=== PATIENT | female | born 1940 | race Caucasian/White ===

== ENCOUNTER → 2018-12-05 | Outpatient (CLI) | payer MEDICARE, OTHER ==
[~2018-12-05] VITALS: Ht 154.9 cm; Wt 66.2 kg
[~2018-12-05] MED LIST: CATHETER FLUSH 10 ML SYR IV PRN; REGADENOSON 0.4 MG/5 ML SYR (LEXISCAN) IV ONE
[2018-12-05 11:07] LABS: ALBUMIN 4.1 GM/DL (3.2-4.5); BILIRUBIN,DIRECT 0.3 MG/DL (0.0-0.3); BILIRUBIN,INDIRECT 0.4 MG/DL; BILIRUBIN,TOTAL 0.7 MG/DL (0.1-1.0); TOTAL PROTEIN 6.9 GM/DL (6.4-8.2)
--- NOTE | 2018-12-05 17:00 | STRESS TEST ---
DATE OF SERVICE: 12/05/2018 LEXISCAN MYOVIEW STRESS TEST REPORT REFERRING PHYSICIAN: Dr. Man Wakefield. Baseline heart rate is 66. Baseline blood pressure 160/97. Baseline EKG is sinus rhythm with no ischemic changes. In summary, the patient was injected with 10.36 mCi of technetium-99 Myoview and the resting images were obtained. Then, the patient received 0.4 mg of Lexiscan, followed by 29.1 mCi of technetium-99 Myoview. Throughout the test, there were no EKG changes. The resting and stress images were reviewed and compared in the short axis, horizontal long axis, and vertical long axis views. Review of the images showed small left ventricle with good radiotracer uptake, no significant ischemia or infarction was seen. SSS is 5, SDS 2, TID value 0.89. On the gated images, the left ventricle appeared to be small in size with normal contractility. Calculated ejection fraction 88%. CONCLUSION: 1. The patient tolerated Lexiscan well. 2. No ischemia or infarction on SPECT images. 3. Small left ventricular size with normal contractility. Calculated ejection fraction 88%, gated images probably overestimating the left ventricular contractility due to the small left ventricle. Job ID: [id number] DocumentID: [id number] Dictated Date: 12/05/2018 15:30:52 Quality Control Systems Manager Date: 12/05/2018 16:59:58 Dictated By: SALAS PRASAD MD
== END ==
LOC: CARD 10:21
PROVIDERS: ATTEND Internal Medicine Cardiovascular Disease
DX: E78.2 Mixed hyperlipidemia (principal); R07.89 Other chest pain; I10 Essential (primary) hypertension
CPT/HCPCS: 36415; 78452; 80061; 80076; 93017; 93306

== ENCOUNTER 2019-04-24 14:20 | Outpatient (CLI) | payer MEDICARE ==
[~2019-04-24] VITALS: Ht 154.9 cm; Wt 66.2 kg
[2019-04-24] MEDS ORDERED: ASPI-808 PO (14:23)
[2019-04-24] MEDS ORDERED: SIME80TA57 PO (14:23)
[2019-04-24] MEDS ORDERED: LISI10TA2 PO (14:23)
[2019-04-24] MEDS ORDERED: METO-395 PO (14:23)
[2019-04-24] MEDS ORDERED: MELO15TA39 PO (14:23)
[2019-04-24] MEDS ORDERED: METH2.5T PO (14:23)
[2019-04-24] MEDS ORDERED: LOVA20TA2 PO (14:23)
[2019-04-24] MEDS ORDERED: FURO40TA4 PO (14:23)
[2019-04-24] MEDS ORDERED: OMEP20TA7 PO (14:23)
== END 2019-04-24 14:46 | disposition home or self-care (01) ==
LOC: PREOP 14:20
PROVIDERS: ATTEND Surgery
DX: Z01.818 Encounter for other preprocedural examination (principal)

== ENCOUNTER → 2019-04-29 | Day surgery (SDC) | payer MEDICARE ==
[2019-04-29] VITALS (7 sets, daily range): BP systolic 100–141; BP diastolic 59–86
[~2019-04-29] VITALS: Ht 154.9 cm; Wt 66.2 kg
[~2019-04-29] MED LIST changes: +ASPI-808 PO; -CATHETER FLUSH 10 ML SYR IV PRN; +FURO40TA4 PO; +LACTATED RINGERS 1,000 ML IV ONE; +LACTATED RINGERS 1,000 ML IV SCH; +LISI10TA2 PO; +LOVA20TA2 PO; +MELO15TA39 PO; +METH2.5T PO; +METO-395 PO; +MIDAZOLAM 2 MG/2 ML (VERSED) VIAL ONE; +NS IV 500 ML 500 ML IV PRN; +OMEP20TA7 PO; +PROPOFOL INJECTION 50 ML IV ONE; -REGADENOSON 0.4 MG/5 ML SYR (LEXISCAN) IV ONE; +SIME80TA57 PO
--- OUTSIDE RECORDS SUMMARY | 2019-04-29 08:47 | XMS REPORT | Continuity of Care Document ---
Author Organization Unknown Address Unknown Phone Unavailable Allergies There is no data. Medications There is no data. Problems There is no data. Procedures There is no data. Results There is no data. Encounters ACCT No. Visit Date/Time Discharge Status Pt. Type Provider Facility Loc./Unit Complaint [id number] 03/11/2019 15:15:00 03/11/2019 23:59:59 CLS Outpatient SELF, MAX Pradhan [facility]
--- NOTE | 2019-04-29 09:20 | Progress Note-Pre Operative ---
Pre-Operative Progress Note H&P Reviewed The H&P was reviewed, patient examined and no changes noted. Time Seen by Provider: 09:16 Date H&P Reviewed: Apr 29, 2019 Time H&P Reviewed: 09:18 Pre-Operative Diagnosis: Screening colonoscopy, constipation CHEPE BALBUENA DO Apr 29, 2019 09:20
--- NOTE | 2019-04-29 09:53 | Progress Note-Post Operative ---
Post-Operative Progess Note Surgeon (s)/High School Math Tutor (s) Surgeon CHEPE BALBUENA DO High School Math Tutor: none Pre-Operative Diagnosis Screening colonoscopy, constipation Post-Operative Diagnosis Diverticula Internal hemorrhoids Procedure & Operative Findings Date of Procedure 04/29/19 Procedure Performed/Findings colon Anesthesia Type IV sedation by MEDICAL CENTER REPRESENTATIVE Estimated Blood Loss Estimated blood loss (mL): none Specimens/Packing Specimens Removed none CHEPE BALBUENA DO Apr 29, 2019 09:53
--- NOTE | 2019-04-29 09:56 | Endoscopy Discharge Instruct ---
Endo Procedure/Findings Findings 1.: Diverticulosis 2.: Internal Hemorrhoids Discharge Instructions - Activity: You might feel a little sleepy until tomorrow. This is due to the medicine you received to relax you. Until tomorrow, you should: NOT drive a car, operate machinery or power tools. NOT drink any alcoholic beverages. NOT make any important decisions or sign importortant papers. Do not return to work until tomorrow, unless otherwise instructed. Resume previous activities tomorrow. Diet: Start by taking liquids. If you tolerate liquids, advance to solid food. make an appointment for one week Instructions: 1.: Colonscopy in 10 years Notify Physician - If you experience excessive bleeding, unusual abdominal pain, fever, or chest pain, contact your doctor immediately. Follow-Up: - I have received and understand the above instructions and will call my doctor if I have any further questions. Patient Signature Date Nurse Signature Other (Relationship) CHEPE BALBUENA DO Apr 29, 2019 09:56
--- NOTE | 2019-05-01 14:48 | OPERATIVE REPORT ---
DATE OF SERVICE: 04/29/2019 PREOPERATIVE DIAGNOSIS: Screening colonoscopy, constipation. POSTOPERATIVE DIAGNOSIS: Diverticula, internal hemorrhoids. PROCEDURE: Colonoscopy. SURGEON: Wisam Wayne DO NUTRITIONAL CHEMIST: None. ANESTHESIA: IV sedation by COMBINATION PRESSER. SPECIMENS: None. BLOOD LOSS: None. FLUIDS: Per anesthesia. POSTOPERATIVE CONDITION: Stable. INDICATION FOR PROCEDURE: The patient is a 78-year-old female who has had some colonoscopy and has had some constipation. Does not have screening colonoscopy in a long time. FINDINGS: The patient had some large diverticula and some internal hemorrhoids, but no other obvious pathology. PROCEDURE NOTE: After informed consent was obtained, the patient was brought to the endoscopy suite and placed in the bed in the left lateral decubitus position. He was administered IV sedation by the COMBINATION PRESSER who then monitored his vitals the entire time, heart rate, blood pressure and pulse ox and the scope was inserted, pushed all the way to [address], noted diverticula, took pictures of these. They were very large. Once all the way to cecum, took a picture of appendiceal orifice, noted the ileocecal valve and then slowly withdrew the scope insufflating to look circumferentially at the morales looking at the cecum, up the ascending colon to the hepatic flexure, then down the transverse colon, splenic flexure, into the descending colon. Throughout the descending colon and sigmoid colon, saw large diverticula continued down into the rectum, retroflexed the rectal vault, saw some minimal internal hemorrhoids, took a picture of this and then removed the scope. The patient tolerated the procedure and she was then recovered in endoscopy suite. Job ID: [id number] DocumentID: [id number] Dictated Date: 05/01/2019 09:52:56 Cutter And Edge Trimmer Date: 05/01/2019 14:47:05 Dictated By: WISAM WAYNE DO
== END ==
LOC: ENDO 08:00
PROVIDERS: ATTEND Surgery
DX: Z12.11 Encounter for screening for malignant neoplasm of colon (principal); K57.30 Diverticulosis of large intestine without perforation or abscess without bleeding; K59.00 Constipation, unspecified; K64.8 Other hemorrhoids; K29.50 Unspecified chronic gastritis without bleeding; E78.2 Mixed hyperlipidemia; I25.10 Atherosclerotic heart disease of native coronary artery without angina pectoris; I10 Essential (primary) hypertension; R06.02 Shortness of breath; R07.9 Chest pain, unspecified; Z88.5 Allergy status to narcotic agent; Z87.891 Personal history of nicotine dependence; Z79.82 Long term (current) use of aspirin; Z82.49 Family history of ischemic heart disease and other diseases of the circulatory system; Z80.9 Family history of malignant neoplasm, unspecified

== ENCOUNTER 2019-05-19 09:47 | Emergency (ER) | payer MEDICARE ==
[~2019-05-19] VITALS: Ht 149.9 cm; Wt 63.5 kg
[~2019-05-19 09:47] MED LIST changes: -LACTATED RINGERS 1,000 ML IV ONE; -LACTATED RINGERS 1,000 ML IV SCH; -MIDAZOLAM 2 MG/2 ML (VERSED) VIAL ONE; -NS IV 500 ML 500 ML IV PRN; -PROPOFOL INJECTION 50 ML IV ONE
--- NOTE | 2019-05-19 10:05 | ED Fall/Injury ---
General Stated Complaint: FALL LAST WK - PAIN IN RT SIDE Source: patient Exam Limitations: no limitations History of Present Illness Date Seen by Provider: May 19, 2019 Time Seen by Provider: 09:59 Initial Comments This 78-year-old female presents with a complaint of right chest wall pain after she fell last week into a couch injuring the right chest wall. The patient was very active yesterday and today has experienced significantly more pain over the impact area of the anterior lower right ribs. Fortunately the patient has not had any severe shortness of breath, fever or chill, hemoptysis, associated abdominal pain, nausea or vomiting. Patient denies other injury and her fall. She had no associated head, neck, or back injury. She has had no associated paresthesias or weakness. Allergies and Home Medications Allergies Coded Allergies: codeine (Unverified Allergy, Mild, N/V, 04/24/19) Home Medications Aspirin 325 Mg Tablet, 325 MG PO DAILY, (Reported) Furosemide 40 Mg Tablet, 40 MG PO DAILY, (Reported) Lisinopril 10 Mg Tablet, 10 MG PO DAILY, (Reported) Lovastatin 20 Mg Tablet, 20 MG PO DAILY, (Reported) Meloxicam 15 Mg Tablet, 15 MG PO DAILY, (Reported) Methotrexate Sodium 2.5 Mg Tablet, 20 MG PO Tu, (Reported) Metoprolol Succinate 100 Mg Tab.er.24h, 100 MG PO DAILY, (Reported) Omeprazole 20 Mg Tablet.dr, 20 MG PO DAILY, (Reported) Simethicone 80 Mg Tab.chew, 80 MG PO PRN, (Reported) Patient Home Medication List Home Medication List Reviewed: Yes Review of Systems Review of Systems Constitutional: No chills Eyes: Denies Blurred Vision Ears, Nose, Mouth, Throat: denies ear pain Respiratory: No cough; other Cardiovascular: chest pain (right anterior chest wall pain) Gastrointestinal: No abdominal pain, No diarrhea, No nausea, No vomiting Genitourinary: no symptoms reported : No Musculoskeletal: No back pain Skin: other (patient has an erythematous rash from a topical patch application to the right anterior chest wall for her pain.) Psychiatric/Neurological: No Symptoms Reported Past Ecwuycw-Eijfhj-Cpaoyj Hx Past Med/Social Hx: Reviewed Nursing Past Med/Soc Hx Patient Social History 2nd Hand Smoke Exposure: No Recent Hopitalizations: No Immunizations Up To Date Date of Pneumonia Vaccine: Jun 27, 2016 Date of Influenza Vaccine: Jun 25, 2018 Seasonal Allergies Seasonal Allergies: No Past Medical History Surgeries: Yes Appendectomy Respiratory: Yes Sleep Apnea Currently Using CPAP: No (DOES NOT USE) Cardiac: Yes High Cholesterol, Hypertension Neurological: No Sexually Transmitted Disease: No HIV/AIDS: No Genitourinary: No Gastrointestinal: Yes (GAS) Colitis, Chronic Constipation Musculoskeletal: Yes Arthritis Endocrine: No HEENT: Yes (GLASSES) Loss of Vision: Denies Hearing Impairment: Denies Cancer: No Psychosocial: No Integumentary: Yes Psoriasis Blood Disorders: No Adverse Reaction/Blood Tranf: No (N/A) Physical Exam Vital Signs Vital Signs - First Documented 05/19/19 09:51 Temp 97.7 Pulse 58 Resp 18 B/P (MAP) 124/80 (95) Pulse Ox 96 O2 Delivery Room Air Capillary Refill : Height, Weight, BMI Height: 5'1.00" Weight: 146lbs. 0.0oz. 66.272542ne; 27.6 BMI Method: General Appearance: WD/WN, no apparent distress HEENT: normal ENT inspection Neck: normal inspection Cardiovascular: regular rate, rhythm Respiratory: lungs clear, normal breath sounds, no respiratory distress, other (there is marked tenderness palpation over the right anterior chest wall over the lower ribs in the midclavicular line.) Gastrointestinal: normal bowel sounds, non tender, soft Back: normal inspection Extremities: normal range of motion, normal inspection Neurologic/Psychiatric: no motor/sensory deficits, alert, normal mood/affect, oriented x 3 Skin: normal color, warm/dry, rash (over the right lower ribs anteriorly from the patient's pain patch) Abdi Coma Score Best Eye Response: (4) Open Spontaneously Best Verbal Response: (5) Oriented Best Motor Response: (6) Obeys Commands Abdi Total: 15 Progress/Results/Core Measures Results/Orders My Orders Orders - GERRY HILTON MD Ribs 2-3 View Right (05/19/19 10:05) Fentanyl Injection (Sublimaze Injection (05/19/19 10:15) Medications Given in ED Current Medications Medications Dose Ordered Sig/Jenny Route Start Time Stop Time Status Last Admin Dose Admin Fentanyl Citrate 50 mcg ONCE ONCE IM 05/19/19 10:15 05/19/19 10:16 DC 05/19/19 10:07 50 MCG Vital Signs/I&O 05/19/19 09:51 Temp 97.7 Pulse 58 Resp 18 B/P (MAP) 124/80 (95) Pulse Ox 96 O2 Delivery Room Air Progress Progress Note : Time: 11:11 Progress Note Chest x-ray demonstrated fracture of the right sixth and seventh ribs. There is no evidence of a pneumohemothorax. Patient was significantly improved with 50 g of fentanyl IV. I discussed findings with patient and asked that she follow-up closely with her caregiver of choice after the . I sent the patient with hydr ocodone for pain. I asked that she return if she have any shortness of breath, increasing chest pain, or hemoptysis. Departure Impression Primary Impression: Fracture of rib Qualified Codes: S22.41XA - Multiple fractures of ribs, right side, initial encounter for closed fracture Disposition: HOME, SELF-CARE Condition: Improved Departure-Patient Inst. Decision time for Depature: 11:12 Referrals: MAX ROSARIO MD (PCP/Family) Primary Care Physician Patient Instructions: Rib Fractures in Adults Add. Discharge Instructions: Vicodin for pain. Watch for signs of fever, increasing shortness of breath, or coughing up blood." Follow with Dr. rosario on Monday. Return if any problems or questions. Scripts Hydrocodone/Acetaminophen (Vicodin 5-300 mg Tablet) 1 Each Tablet 1-2 EACH PO Q6H PRN for PAIN-MODERATE MDD 10 for 7 Days, #20 TAB Prov: GERRY HILTON MD 05/19/19 GERRY HILTON MD May 19, 2019 10:04
[2019-05-19] MEDS ORDERED: fentaNYL INJECTION 100 MCG/2 ML AMP IM ONE (10:15)
--- NOTE | 2019-05-19 10:54 | Diagnostic Imaging Report ---
EXAMINATION: Right r8ib radiographs, 2 views. COMPARISON: None. HISTORY: 78-year-old female, fall. Right-sided rib pain. FINDINGS: There are mildly displaced fractures of the right sixth and seventh ribs. There is no identified right-sided pneumothorax or sizable pleural effusion. There is a probable hiatal hernia. There are severe right glenohumeral arthritic changes. There are probable intra-articular bodies associated with the left glenohumeral joint. IMPRESSION: 1. Mildly displaced fractures of the right sixth and seventh ribs. 2. No identified right-sided pneumothorax or pleural effusion. 3. Probable large hiatal hernia. Dictated by: Dictated on workstation # [id number]
[2019-05-19] MEDS ORDERED: HYDR-3455 PO (11:14)
[2019-05-19 11:44] VITALS: BP 134/75
--- NOTE | 2019-05-19 11:44 | NUR ---
Pt was given education on activity as tolerated but not lay around/not staying in bed and to promote ambulation, healthy diet, and stay hydrated. Pt reviewed signs and sx of need to be seen or return to ER. Pt to call PCP office Monday to schedule a follow up. Rx Chiqui handed to patient
== END 2019-05-19 11:44 | disposition home or self-care (01) ==
LOC: EDUNIT# 09:47 → ER FS 09:49
DX: S22.41XA Multiple fractures of ribs, right side, initial encounter for closed fracture (principal); G47.30 Sleep apnea, unspecified; I10 Essential (primary) hypertension; E78.00 Pure hypercholesterolemia, unspecified; R40.2142 Coma scale, eyes open, spontaneous, at arrival to emergency department; R40.2252 Coma scale, best verbal response, oriented, at arrival to emergency department; R40.2362 Coma scale, best motor response, obeys commands, at arrival to emergency department; Z87.19 Personal history of other diseases of the digestive system; Z88.5 Allergy status to narcotic agent; Z79.82 Long term (current) use of aspirin; Z90.49 Acquired absence of other specified parts of digestive tract; W08.XXXA Fall from other furniture, initial encounter
CPT/HCPCS: 71100

== ENCOUNTER 2020-11-18 11:45 | Emergency (ER) | payer MEDICARE ==
[~2020-11-18] VITALS: Ht 152.4 cm; Wt 55.0 kg
[~2020-11-18 11:45] MED LIST changes: +HYDR-3455 PO; -LISI10TA2 PO; +LISI10TA25 PO; -METO-395 PO; +MTP100TCR PO; -SIME80TA57 PO; +SIME80TA66 PO
[2020-11-18] MEDS ORDERED: methylPREDNISolone 40 MG/ML (DEPO MEDROL) VIAL IM STA (12:00)
[2020-11-18] MEDS ORDERED: ORPHENADRINE 60 MG/2 ML (NORFLEX) AMP (ED ONLY) IM STA (12:00)
--- NOTE | 2020-11-18 12:09 | ED General ---
General Stated Complaint: LEFT HIP AND KNEE PAIN Source of Information: Patient History of Present Illness Date Seen by Provider: Nov 18, 2020 Time Seen by Provider: 11:47 Initial Comments 80-year-old female presenting with complaints of pain in the left hip radiating down her leg. She has chronic left knee pain but since around noon yesterday after sitting on a wooden bench and increased walking in the mall yesterday she has had pain radiating from posterior left hip down her leg. She has tried taking aspirin-based medication this morning without relief. She usually takes meloxicam but does not feel that it helps with her knee and it has not helped with her hip pain. She denies any direct trauma to the hip and she has not had any falls. She was having a lot of difficulty getting comfortable on the wooden bench in the setting her for more than 30 minutes. This is the time that she noticed having the increased pain in her hip going down her leg. This was around noon yesterday and has progressed since then. She has no difficulty with bowel or bladder control. She denies any fever or chills. She has increased pain with walking due to the posterior left hip pain. Timing/Duration: 24 Hours Severity: Severe Modifying Factors: worse with Movement; improves with Rest Associated Systoms: No Chest Pain, No Cough, No Diaphoresis, No Fever/Chills, No Headaches, No Loss of Appetite, No Malaise, No Nausea/Vomiting, No Rash, No Seizure, No Shortness of Air, No Syncope, No Weakness Allergies and Home Medications Allergies Coded Allergies: codeine (Unverified Allergy, Mild, N/V, 04/24/19) Home Medications Aspirin 325 Mg Tablet, 325 MG PO DAILY, (Reported) Baclofen 5 Mg Tablet, 5 MG PO BID PRN for muscle spasm/hip pain Prescribed by: FRANCISCO SHI on 11/18/20 1327 Furosemide 40 Mg Tablet, 40 MG PO DAILY, (Reported) Lisinopril 10 Mg Tablet, 10 MG PO DAILY, (Reported) Lovastatin 20 Mg Tablet, 20 MG PO DAILY, (Reported) Meloxicam 15 Mg Tablet, 15 MG PO DAILY, (Reported) Methotrexate Sodium 2.5 Mg Tablet, 20 MG PO Tu, (Reported) Metoprolol Succinate 50 Mg Tab.er.24h, 50 MG PO DAILY, (Reported) Omeprazole 40 Mg Capsule.dr, 40 MG PO DAILY, (Reported) Sertraline HCl 50 Mg Tablet, 50 MG PO DAILY, (Reported) Simethicone 80 Mg Tab.chew, 80 MG PO PRN, (Reported) Patient Home Medication List Home Medication List Reviewed: Yes Review of Systems Review of Systems Constitutional: No chills, No fever EENTM: no symptoms reported Respiratory: no symptoms reported Cardiovascular: no symptoms reported Gastrointestinal: no symptoms reported Genitourinary: no symptoms reported Musculoskeletal: see HPI, joint pain (posterior left hip pain radiating down her left leg) Skin: No rash Psychiatric/Neurological: Tingling (left leg) Hematologic/Lymphatic: No Symptoms Reported Immunological/Allergic: no symptoms reported Past Pvsmcvz-Cakxsw-Lkrpvt Hx Past Med/Social Hx: Reviewed Nursing Past Med/Soc Hx Patient Social History 2nd Hand Smoke Exposure: No Recent Hopitalizations: No Immunizations Up To Date Date of Pneumonia Vaccine: Jun 27, 2016 Date of Influenza Vaccine: Jun 25, 2018 Seasonal Allergies Seasonal Allergies: No Past Medical History Surgeries: Yes Appendectomy Respiratory: Yes Sleep Apnea Currently Using CPAP: No (DOES NOT USE) Cardiac: Yes High Cholesterol, Hypertension, Irregular Heartbeat Neurological: No Sexually Transmitted Disease: No HIV/AIDS: No Genitourinary: No Gastrointestinal: Yes (GAS) Colitis, Gastroesophageal Reflux, Chronic Constipation Musculoskeletal: Yes Arthritis Endocrine: No HEENT: Yes (GLASSES) Loss of Vision: Denies Hearing Impairment: Denies Cancer: No Psychosocial: No Integumentary: Yes Psoriasis Blood Disorders: No Adverse Reaction/Blood Tranf: No (N/A) Physical Exam Vital Signs Vital Signs - First Documented 11/18/20 11:45 Temp 37.0 Pulse 70 Resp 16 B/P (MAP) 153/72 (99) Pulse Ox 95 O2 Delivery Room Air Capillary Refill : Height, Weight, BMI Height: 4'11.00" Weight: 140lbs. 0.0oz. [id number]; 27.6 BMI Method:Stated General Appearance: WD/WN, Anxious Respiratory: Chest Non Tender, Lungs Clear, Normal Breath Sounds Cardiovascular: Regular Rate, Rhythm, Normal Peripheral Pulses Back: Normal Inspection, No CVA Tenderness, No Vertebral Tenderness Extremity: Normal Capillary Refill, No Calf Tenderness, No Pedal Edema, Other (pain over SI joint on left side and increases the pain she has felt in last 24 hours. negative SLR. pain with ROM left knee that is chronic) Neurologic/Psychiatric: Alert, Oriented x3, structural metal worker II-XII Norm as Tested, Abnormal Gait (antalgic) Skin: Normal Color, Warm/Dry; No Rash Progress/Results/Core Measures Suspected Sepsis SIRS Temperature: Pulse: Respiratory Rate: Blood Pressure / Mean: Results/Orders My Orders Orders - FRANCISCO SHI MD Ct Pelvis Wo (11/18/20 12:00) Dexamethasone Injection (Decadron Inje (11/18/20 12:00) Methylprednisolone Acetate Inj (Depo-Med (11/18/20 12:00) Orphenadrine Inj (Ed Only) (Norflex Inje (11/18/20 12:00) Vital Signs/I&O 11/18/20 11:45 Temp 37.0 Pulse 70 Resp 16 B/P (MAP) 153/72 (99) Pulse Ox 95 O2 Delivery Room Air Capillary Refill : Progress Note #1: Progress Note try Decadron with depomedrol for pain and inflammation, Norflex for possible muscle spasms in the left hip and leg from possible Sciatica with her having pain over SI joint and radiating down leg. Obtain CT scan of the pelvis to evaluate for bony abnormality contributing to her symptoms. Progress Note #2: Progress Note CT scan does not show any occult fracture or bony disruption in left pelvis/hip area. Counseled pt on results and will try low dose baclofen. Depo-Medrol should continue to help with pain and inflammation over the next 7 to 10 days. Check with clinic for continued concerns and may need a walker or assistive device to help with walking. Diagnostic Imaging Diagonstic Imaging: CT Plain Films/CT/US/NM/MRI: pelvis Comments [facility] [place], [place] NAME: JOB CARLOS [facility] REC#: [id number] PT STATUS: DEP ER : 1940 PHYSICIAN: FRANCISCO SHI MD ADMIT DATE: 11/18/20/ER FS Signed Date of Exam:11/18/20 CT PELVIS WO PROCEDURE: CT pelvis without contrast. TECHNIQUE: Multiple contiguous axial images were obtained through the pelvis without the use of intravenous contrast. Sagittal and coronal reformations were performed. Auto Exposure Controls were utilized during the CT exam to meet ALARA standards for radiation dose reduction. INDICATION: Left hip pain. FINDINGS: The sacrum is intact. The SI joints appear normal. There are no hip fractures seen. The pelvic ring is intact. There are advanced degenerative disc changes at L4-L5 with a grade 1 spondylolisthesis. There is advanced degenerative disc change at L5-S1. There is vacuum disc phenomena with complete loss of the joint space at both L4-L5 and L5-S1. There is a central spinal stenosis at L4-L5 where the sagittal diameter of the canal is reduced to 6 mm. A uterus is present. The adnexa are unremarkable. The urinary bladder is unremarkable. There is diverticulosis of the colon but no evidence of diverticulitis. There are no pathologic masses or fluid collections seen in the pelvis. IMPRESSION: Severe degenerative disc changes at L4-L5 and L5-S1 with grade 1 spondylolisthesis and central stenosis at L4-L5. Dictated by: Dictated on workstation # [id number] Dict: 11/18/20 1250 Trans: 11/18/20 1335 [id number] Interpreted by: SRIRAM CHU MD Electronically signed by: SRIRAM CHU MD 11/18/20 1335 Departure Impression Primary Impression: Left sided sciatica Disposition: 01 HOME, SELF-CARE Condition: Improved Departure-Patient Inst. Decision time for Depature: 13:27 Referrals: MAX WAKEFIELD MD (PCP/Family) Primary Care Physician Patient Instructions: Sciatica (DC), Sciatica Exercises Add. Discharge Instructions: Try alternating ice and heat to your left hip area to help with pain and inflammation. Check with Dr. Wakefield about the sciatica and your knee as well as if he will prescribe a walker or assistive device to help with your walking besides the cane you are currently using. Try using the muscle relaxer at least at bedtime to help with pain and spasms in your hip and leg. Continue with your regular medicines at home. Scripts Baclofen (Baclofen) 5 Mg Tablet 5 MG PO BID PRN for muscle spasm/hip pain for 10 Days, #20 TAB 0 Refills Prov: FRANCISCO SHI MD 11/18/20 FRANCISCO SHI MD Nov 18, 2020 12:08
--- NOTE | 2020-11-18 12:57 | Diagnostic Imaging Report ---
PROCEDURE: CT pelvis without contrast. TECHNIQUE: Multiple contiguous axial images were obtained through the pelvis without the use of intravenous contrast. Sagittal and coronal reformations were performed. Auto Exposure Controls were utilized during the CT exam to meet ALARA standards for radiation dose reduction. INDICATION: Left hip pain. FINDINGS: The sacrum is intact. The SI joints appear normal. There are no hip fractures seen. The pelvic ring is intact. There are advanced degenerative disc changes at L4-L5 with a grade 1 spondylolisthesis. There is advanced degenerative disc change at L5-S1. There is vacuum disc phenomena with complete loss of the joint space at both L4-L5 and L5-S1. There is a central spinal stenosis at L4-L5 where the sagittal diameter of the canal is reduced to 6 mm. A uterus is present. The adnexa are unremarkable. The urinary bladder is unremarkable. There is diverticulosis of the colon but no evidence of diverticulitis. There are no pathologic masses or fluid collections seen in the pelvis. IMPRESSION: Severe degenerative disc changes at L4-L5 and L5-S1 with grade 1 spondylolisthesis and central stenosis at L4-L5. Dictated by: Dictated on workstation # [id number]
[2020-11-18] MEDS ORDERED: OMEP40CA27 PO (12:58)
[2020-11-18] MEDS ORDERED: SERT-413 PO (12:58)
[2020-11-18] MEDS ORDERED: METO50TA7 PO (12:58)
[2020-11-18] MEDS ORDERED: Vit D3 (12:58)
[2020-11-18] MEDS ORDERED: BACL5TAB PO (13:27)
[2020-11-18 13:29] VITALS: BP 143/71
== END 2020-11-18 13:29 | disposition home or self-care (01) ==
LOC: EDUNIT# 11:45 → ER FS 11:47
DX: M54.32 Sciatica, left side (principal); I10 Essential (primary) hypertension; E78.00 Pure hypercholesterolemia, unspecified; K21.9 Gastro-esophageal reflux disease without esophagitis; Z88.5 Allergy status to narcotic agent; Z79.82 Long term (current) use of aspirin
CPT/HCPCS: 72192

== ENCOUNTER → 2020-12-01 | Outpatient (CLI) | payer MEDICARE ==
[~2020-12-01] MED LIST changes: +BACL5TAB PO; +METO50TA7 PO; +OMEP40CA27 PO; +SERT-413 PO; +Vit D3
== END ==
LOC: CARD 12:59
PROVIDERS: ATTEND Physician Assistant
DX: I10 Essential (primary) hypertension (principal); I08.3 Combined rheumatic disorders of mitral, aortic and tricuspid valves
CPT/HCPCS: 93306

== ENCOUNTER → 2020-12-18 | Outpatient (CLI) | payer MEDICARE | LOC: LAB FS 10:00 | PROVIDERS: ATTEND Orthopaedic Surgery | DX: Z01.812 Encounter for preprocedural laboratory examination (principal); Z20.822 Contact with and (suspected) exposure to COVID-19 | CPT/HCPCS: 87635 ==

== ENCOUNTER 2021-12-15 15:27 | Emergency (ER) | payer MEDICARE ==
[~2021-12-15] VITALS: Ht 152 cm; Wt 52.3 kg
[~2021-12-15 15:27] MED LIST changes: -OMEP40CA27 PO; +OMEP40CA6 PO; -SIME80TA66 PO; +SIME80TA72 PO
[2021-12-15 15:30] VITALS: BP 144/82
--- NOTE | 2021-12-15 15:47 | ED Lower Extremity ---
General Chief Complaint: Trauma-Non Activation Stated Complaint: FALL History of Present Illness Date Seen by Provider: Dec 15, 2021 Time Seen by Provider: 15:29 Initial Comments 81-year-old female with PMH of left knee replacement December 2020, is here after a fall where she lost her balance by stepping on the curb and twisting her knee, and fell on her face onto the curb resulting in swelling and pain to her nose and left knee pain. Denies LOC, visual disturbances, ringing in the ears, nausea or vomiting, abdominal pain. Patient was able to get into the car with assistance of bystanders. Allergies and Home Medications Allergies Coded Allergies: codeine (Unverified Allergy, Mild, N/V, 04/24/19) Patient Home Medication List Home Medication List Reviewed: Yes Aspirin (Aspirin) 325 Mg Tablet, 325 MG PO DAILY, (Reported) Entered as Reported by: KYLIE BURR on 04/24/19 142 Baclofen (Baclofen) 5 Mg Tablet, 5 MG PO BID PRN for muscle spasm/hip pain Prescribed by: FRANCISCO SHI on 11/18/20 1327 Furosemide (Furosemide) 40 Mg Tablet, 40 MG PO DAILY, (Reported) Entered as Reported by: KYLIE BURR on 04/24/19 142 Lisinopril (Lisinopril) 10 Mg Tablet, 10 MG PO DAILY, (Reported) Entered as Reported by: KYLIE BURR on 04/24/19 142 Lovastatin (Lovastatin) 20 Mg Tablet, 20 MG PO DAILY, (Reported) Entered as Reported by: KYLIE BURR on 04/24/19 1423 Meloxicam (Meloxicam) 15 Mg Tablet, 15 MG PO DAILY, (Reported) Entered as Reported by: KYLIE BURR on 04/24/19 142 Methotrexate Sodium (Methotrexate) 2.5 Mg Tablet, 20 MG PO Tu, (Reported) Entered as Reported by: KYLIE BURR on 04/24/19 1423 Metoprolol Succinate (Metoprolol Succinate) 50 Mg Tab.er.24h, 50 MG PO DAILY, (Reported) Entered as Reported by: KRISTEN OLIVEIRA on 11/18/20 1258 Omeprazole (Omeprazole) 40 Mg Capsule.dr, 40 MG PO DAILY, (Reported) Entered as Reported by: KRISTEN OLIVEIRA on 11/18/20 1258 Sertraline HCl (Sertraline HCl) 50 Mg Tablet, 50 MG PO DAILY, (Reported) Entered as Reported by: KRISTEN OLIVEIRA on 11/18/20 1258 Simethicone (Gas Relief) 80 Mg Tab.chew, 80 MG PO PRN, (Reported) Entered as Reported by: KYLIE BURR on 04/24/19 1423 [Vit D3] , (Reported) Entered as Reported by: KRISTEN OLIVEIRA on 11/18/20 1258 Review of Systems Constitutional: no symptoms reported EENTM: no symptoms reported, other (nasal pain) Respiratory: no symptoms reported Cardiovascular: no symptoms reported Gastrointestinal: no symptoms reported Musculoskeletal: joint pain, joint swelling Skin: no symptoms reported Psychiatric/Neurological: No Symptoms Reported Past Vuzyohs-Jpyhjy-Gnkdez Hx Patient Social History Tobacco Use?: No Use of E-Cig and/or Vaping dev: No Substance use?: No Alcohol Use?: No Pt feels they are or have been: No Immunizations Up To Date Tetanus Booster (TDap): Unknown Influenza Vaccine Up-to-Date: Yes; Up-to-Date Seasonal Allergies Seasonal Allergies: No Past Medical History Surgery/Hospitalization HX: 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 Surgeries: Yes Appendectomy Respiratory: Yes Sleep Apnea Currently Using CPAP: No (DOES NOT USE) Cardiac: Yes High Cholesterol, Hypertension, Irregular Heartbeat Neurological: No Sexually Transmitted Disease: No HIV/AIDS: No Genitourinary: No Gastrointestinal: Yes (GAS) Colitis, Gastroesophageal Reflux, Chronic Constipation Musculoskeletal: Yes Arthritis Endocrine: No HEENT: Yes (GLASSES) Loss of Vision: Denies Hearing Impairment: Denies Cancer: No Psychosocial: No Integumentary: Yes Psoriasis Blood Disorders: No Adverse Reaction/Blood Tranf: No (N/A) Physical Exam Vital Signs Vital Signs - First Documented Capillary Refill : Height, Weight, BMI Height: 4'11.00" Weight: 140lbs. 0.0oz. 63.768889ov; 23.00 BMI Method:Stated General Appearance: mild distress HEENT: PERRL/EOMI, other (nose is red, bruised, and swollen, and is tender to touch.) Neck: non-tender, full range of motion, supple, normal inspection Cardiovascular: regular rate, rhythm Respiratory: lungs clear Knees: left knee normal range of motion, left knee bone tenderness, left knee pain, left knee soft tissue tenderness, left knee swelling Ankles: left ankle normal inspection, left ankle normal range of motion Reflexes: 4+ knee (R), 4+ knee (L) Neurologic/Tendon: normal sensation Neurologic/Psychiatric: [employer] chair II-XII nml as tested, no motor/sensory deficits, alert, normal mood/affect, oriented x 3 Skin: normal color Progress/Results/Core Measures Results/Orders My Orders Orders - EKATERINA CEBALLOS MD Ct Head/Face/Cervical Wo (12/15/21 16:02) Knee 3 View Left (12/15/21 16:02) Vital Signs/I&O 12/15/21 12/15/21 15:30 15:30 Temp 35.6 35.6 Pulse 81 81 Resp 22 22 B/P (MAP) 144/82 144/82 (102) Pulse Ox 97 97 O2 Delivery Room Air Progress Progress Note : Progress Note 1. FALL NASAL FRACTURE: - CT HEAD/ C-SPINE/ FACIAL: see below - ice - Discussed with ENT consult via phone: Will give Augmentin prescription and pt to call ENT office tomorrow morning -Advised patient to ice as much as tolerated, sleep with head elevated, and advised not to blow the nose. -The patient was seen in the ED, and treated appropriately to presentation at a specific point in time. Patient is informed that there is a possibility that disease and illness can evolve and change in acuity rapidly or slowly after patient is discharged from the ER. Precautionary advice given to the patient for immediate return to ER if symptoms worsen or do not resolve, and to seek emergency care sooner rather than later. Pt also advised on the importance of PCP follow up and compliance with management and follow up plan. Pt verbally expressed understanding. 2. LEFT KNEE INJURY WITH FALL: - X-ray LEFT KNEE: normal - MELVIN bandage - Ibuprofen 600mg Diagnostic Imaging Diagonstic Imaging: Xray, CT Plain Films/CT/US/NM/MRI: facial bones, c-spine, knee, head Comments [facility] [place] [place] NAME: JOB CARLOS [facility] REC#: [id number] PT STATUS: REG ER : 1940 PHYSICIAN: EKATERINA CEBALLOS MD ADMIT DATE: 12/15/21/ER FS Draft Date of Exam:12/15/21 KNEE 3 VIEW LEFT INDICATION: Fall, knee pain. EXAMINATION: Left knee 12/15/2021 FINDINGS: 3 views of the left knee. There is a total knee arthoplasty which appears intact with no evidence for loosening. Postoperative changes noted within the visualized distal femur, partially imaged and uncomplicated in appearance. No acute fractures or dislocations appreciated. There is minimal joint fluid. IMPRESSION: 1. Uncomplicated postoperative findings, as above. Dictated on workstation # [id number] Dict: 12/15/21 1631 Trans: 12/15/21 1634 [facility] [id number] Interpreted by: ELLA TRUONG MD Electronically signed by: [place], [place] NAME: JOB CARLOS [facility] REC#: [id number] PT STATUS: REG ER : 1940 PHYSICIAN: EKATERINA CEBALLOS MD ADMIT DATE: 12/15/21/ER FS Draft Date of Exam:12/15/21 CT HEAD/FACE/CERVICAL WO CLINICAL INDICATION: Patient is status post fall with swelling and bruising to the nasal bridge and bruising under both eyes. EXAM: Head CT without IV contrast with sagittal and coronal reformations. Maxillofacial CT scan without contrast with sagittal and coronal reformatted images. Axial CT scan of the cervical spine with sagittal and coronal reformations. Auto Exposure Controls were utilized during the CT exam to meet ALARA standards for radiation dose reduction. COMPARISON: None. FINDINGS: Head CT and Maxillofacial: There is no evidence of acute cerebral infarct, intracranial hemorrhage, or gross mass effect. The brain parenchymal volume appears appropriate for patient's age. There is normal dawson-white matter distinction. There is no significant midline shift or herniation. There is no evidence of hydrocephalus. The basal cisterns are unremarkable. There is mild soft tissue swelling involving the left side of the nose and nasal bridge region. There is a slightly displaced fracture involving the posterior left nasal bone and frontal process of the left maxilla. There is air within the cartilaginous portion of the nasal septum inferiorly near the region of the fracture, and injury to the nasal septum in this region cannot be completely excluded. There is mild soft tissue swelling of the nasal septal region anteriorly. There is very subtle irregularity involving the right nasomaxillary suture region, which also may represent a very subtle fracture. Chronic appearing subtle deviation of the nasal septum is noted. There is no other skull or maxillofacial fracture. The orbits and globes are intact. There is scrp-zz-vinwqkhw mucosal thickening involving the nasal cavity, ethmoid sinus, and frontal recess region. There is minimal mucosal thickening involving the right maxillary sinus. Temporal bones show no significant abnormality. Cervical spine: There is no acute cervical spine fracture. There is a chronic appearing mild compression deformity involving the T1 vertebra. There is chronic appearing grade 1 anterolisthesis of C3 on C4 with no pars defect. There are cervical spine vertebral body spurs and facet arthropathy. There is fdlufrzv-au-fjgrdu loss of disc space height seen at C3 through C7 levels with bilateral uncinate spurs. There is multilevel neural foramen narrowing at the C3 through C7 levels, which is most pronounced in the right C5-C6 and C6-C7 levels with wgpkrkgz-zm-bglweq stenosis. There is no significant central canal stenosis. The neck soft tissue structures show no significant abnormality. Visualized upper lung coles are clear. IMPRESSION: 1: There are slightly displaced fractures involving the posterior aspect of the left nasal bone, frontal process of the left maxilla, and suspected subtle fracture of the right nasomaxillary suture region. There is also a small amount of air within the cartilaginous portion of the nasal septum anteriorly, and a nondisplaced fracture or injury is suspected. 2: There is soft tissue swelling adjacent to the nose and involving the anterior nasal cavity region. There is no other skull or maxillofacial fracture. 3: There is no evidence of intracranial hemorrhage. 4: There is no acute cervical spine fracture. Dictated on workstation # [id number] Dict: 12/15/21 1630 Trans: 12/15/21 1648 [id number] Interpreted by: STACY JACOME MD Electronically signed by: Departure Impression Primary Impression: Nasal bone fractures Qualified Codes: S02.2XXA - Fracture of nasal bones, initial encounter for closed fracture Additional Impression: Contusion of left knee Qualified Codes: S80.02XA - Contusion of left knee, initial encounter Disposition: HOME, SELF-CARE Condition: Stable Departure-Patient Inst. Referrals: MARILEE SINGH MD ENT clinic. Call in morning. MAX ROSARIO MD (PCP/Family) Primary Care Physician Patient Instructions: Nose Fracture (DC), Minor Contusion ED Add. Discharge Instructions: -Advised patient to ice as much as tolerated, sleep with head elevated, and advised not to blow the nose. -The patient was seen in the ED, and treated appropriately to presentation at a specific point in time. Patient is informed that there is a possibility that disease and illness can evolve and change in acuity rapidly or slowly after patient is discharged from the ER. Precautionary advice given to the patient for immediate return to ER if symptoms worsen or do not resolve, and to seek emergency care sooner rather than later. Pt also advised on the importance of PCP follow up and compliance with management and follow up plan. Pt verbally expressed understanding. - Ibuprofen and Tylenol prn pain - F/u with ENT clinic first thing in the morning: Dr. Singh: Office number: [phone]. All discharge instructions reviewed with patient and/or family. Voiced understanding. Scripts Amoxicillin/Potassium Clav (Amoxicillin-Clav ER 1,000-62.5) 1 Each Tab.er.12h 1 EACH PO Q12H for 7 Days, #14 TAB Prov: EKATERINA CEBALLOS MD 12/15/21 EKATERINA CEBALLOS MD Dec 15, 2021 15:47
--- NOTE | 2021-12-15 16:34 | Diagnostic Imaging Report ---
INDICATION: Fall, knee pain. EXAMINATION: Left knee 12/15/2021 FINDINGS: 3 views of the left knee. There is a total knee arthoplasty which appears intact with no evidence for loosening. Postoperative changes noted within the visualized distal femur, partially imaged and uncomplicated in appearance. No acute fractures or dislocations appreciated. There is minimal joint fluid. IMPRESSION: 1. Uncomplicated postoperative findings, as above. Dictated by: Dictated on workstation # [id number]
--- NOTE | 2021-12-15 16:50 | Diagnostic Imaging Report ---
CLINICAL INDICATION: Patient is status post fall with swelling and bruising to the nasal bridge and bruising under both eyes. EXAM: Head CT without IV contrast with sagittal and coronal reformations. Maxillofacial CT scan without contrast with sagittal and coronal reformatted images. Axial CT scan of the cervical spine with sagittal and coronal reformations. Auto Exposure Controls were utilized during the CT exam to meet ALARA standards for radiation dose reduction. COMPARISON: None. FINDINGS: Head CT and Maxillofacial: There is no evidence of acute cerebral infarct, intracranial hemorrhage, or gross mass effect. The brain parenchymal volume appears appropriate for patient's age. There is normal dawson-white matter distinction. There is no significant midline shift or herniation. There is no evidence of hydrocephalus. The basal cisterns are unremarkable. There is mild soft tissue swelling involving the left side of the nose and nasal bridge region. There is a slightly displaced fracture involving the posterior left nasal bone and frontal process of the left maxilla. There is air within the cartilaginous portion of the nasal septum inferiorly near the region of the fracture, and injury to the nasal septum in this region cannot be completely excluded. There is mild soft tissue swelling of the nasal septal region anteriorly. There is very subtle irregularity involving the right nasomaxillary suture region, which also may represent a very subtle fracture. Chronic appearing subtle deviation of the nasal septum is noted. There is no other skull or maxillofacial fracture. The orbits and globes are intact. There is shpy-qw-lauifiyu mucosal thickening involving the nasal cavity, ethmoid sinus, and frontal recess region. There is minimal mucosal thickening involving the right maxillary sinus. Temporal bones show no significant abnormality. Cervical spine: There is no acute cervical spine fracture. There is a chronic appearing mild compression deformity involving the T1 vertebra. There is chronic appearing grade 1 anterolisthesis of C3 on C4 with no pars defect. There are cervical spine vertebral body spurs and facet arthropathy. There is gnxiwsjn-pb-swkbbu loss of disc space height seen at C3 through C7 levels with bilateral uncinate spurs. There is multilevel neural foramen narrowing at the C3 through C7 levels, which is most pronounced in the right C5-C6 and C6-C7 levels with gqugxnxr-re-khivwr stenosis. There is no significant central canal stenosis. The neck soft tissue structures show no significant abnormality. Visualized upper lung coles are clear. IMPRESSION: 1: There are slightly displaced fractures involving the posterior aspect of the left nasal bone, frontal process of the left maxilla, and suspected subtle fracture of the right nasomaxillary suture region. There is also a small amount of air within the cartilaginous portion of the nasal septum anteriorly, and a nondisplaced fracture or injury is suspected. 2: There is soft tissue swelling adjacent to the nose and involving the anterior nasal cavity region. There is no other skull or maxillofacial fracture. 3: There is no evidence of intracranial hemorrhage. 4: There is no acute cervical spine fracture. Dictated by: Dictated on workstation # [id number]
[2021-12-15] MEDS ORDERED: AMOX1TAB39 PO (17:30)
[2021-12-15] MEDS ORDERED: IBUPROFEN 600 MG (MOTRIN) TAB PO ONE (17:45)
== END 2021-12-15 17:41 | disposition home or self-care (01) ==
LOC: EDUNIT# 15:27 → ER FS 15:28
DX: S02.2XXA Fracture of nasal bones, initial encounter for closed fracture (principal); S80.02XA Contusion of left knee, initial encounter; X50.1XXA Overexertion from prolonged static or awkward postures, initial encounter
CPT/HCPCS: 70450; 70486; 72125; 73562

== ENCOUNTER 2022-04-26 09:42 | Emergency (ER) | payer MEDICARE ==
[~2022-04-26] VITALS: Ht 149.9 cm; Wt 55.3 kg
[~2022-04-26 09:42] MED LIST changes: +AMOX1TAB39 PO; +OMEP20TA56 PO; -OMEP20TA7 PO
--- NOTE | 2022-04-26 10:05 | ED Lower Extremity ---
General Chief Complaint: Lower Extremity Stated Complaint: RT KNEE INJ Nursing Triage Note: PT TO ROOM FS05 VIA W/C WITH C/O RIGHT KNEE PAIN. PT REPORTS FALLING X1 WEEK AGO AND LANDING ON KNEES. PT REPORTS BEING SEEN AT [facility] AND HAD A NEGATIVE XRAY. PT REPORTS THAT A RE-READ OF XRAY SHOWED A POSSIBLE FX BETING THE PATELLA. PT STATES THAT HER PCP WANTED A CT BUT THAT THE INSURANCE AUTHORIZATION WOULD TAKE 2-14 DAYS AND SHE HURTS SO DID NOT WANT TO WAIT SO SHE CAME TO ED. Source: patient, family Exam Limitations: no limitations History of Present Illness Date Seen by Provider: Apr 26, 2022 Time Seen by Provider: 09:49 Initial Comments 81-year-old female with past medical history of hypertension and psoriatic arthritis coming in due to right knee pain. Slipped and fell onto her bilateral knees last Monday. Went to an urgent care and had a negative x-ray at that time. Was called the next day concerning for an occult fracture and they were told to get a CT scan. She has been waiting on insurance approval, but pain has been worsening and so she came to the ER to get this done. She says she is able to put some weight on it but is really having difficulty walking at all. Most of the pain is in her medial aspect of her right knee and also where she feels like it is underneath her kneecap. The pain is moderate, severe when walking, throbbing, and slightly better with her meloxicam. She is otherwise denying any other acute complaints. Allergies and Home Medications Allergies Coded Allergies: codeine (Unverified Allergy, Mild, N/V, 04/24/19) Patient Home Medication List Home Medication List Reviewed: Yes Amoxicillin/Potassium Clav (Amoxicillin-Clav ER 1,000-62.5) 1 Each Tab.er.12h, 1 EACH PO Q12H Prescribed by: EKATERINA CEBALLOS MD on 12/15/21 1730 Aspirin (Aspirin) 325 Mg Tablet, 325 MG PO DAILY, (Reported) Entered as Reported by: KYLIE BURR on 04/24/19 1423 Baclofen (Baclofen) 5 Mg Tablet, 5 MG PO BID PRN for muscle spasm/hip pain Prescribed by: FRANCISCO SHI on 11/18/20 1327 Furosemide (Furosemide) 40 Mg Tablet, 40 MG PO DAILY, (Reported) Entered as Reported by: KYLIE BURR on 04/24/19 142 Hydrocodone Bit/Acetaminophen (HYDROcodone/APAP 5 MG/325 MG TAB) 1 Tab Tab, 1 TAB PO Q6H Prescribed by: DOLORES MARTIN on 04/26/22 1058 Lisinopril (Lisinopril) 10 Mg Tablet, 10 MG PO DAILY, (Reported) Entered as Reported by: KYLIE BURR on 04/24/19 142 Lovastatin (Lovastatin) 20 Mg Tablet, 20 MG PO DAILY, (Reported) Entered as Reported by: KYLIE BURR on 04/24/19 142 Meloxicam (Meloxicam) 15 Mg Tablet, 15 MG PO DAILY, (Reported) Entered as Reported by: KYLIE BURR on 04/24/19 142 Methotrexate Sodium (Methotrexate) 2.5 Mg Tablet, 20 MG PO Tu, (Reported) Entered as Reported by: KYLIE BURR on 04/24/19 142 Metoprolol Succinate (Metoprolol Succinate) 50 Mg Tab.er.24h, 50 MG PO DAILY, (Reported) Entered as Reported by: KRISTEN OLIVEIRA on 11/18/20 125 Omeprazole (Omeprazole) 40 Mg Capsule.dr, 40 MG PO DAILY, (Reported) Entered as Reported by: KRISTEN OLIVEIRA on 11/18/20 125 Sertraline HCl (Sertraline HCl) 50 Mg Tablet, 50 MG PO DAILY, (Reported) Entered as Reported by: KRISTEN OLIVEIRA on 11/18/20 1258 Simethicone (Gas Relief) 80 Mg Tab.chew, 80 MG PO PRN, (Reported) Entered as Reported by: KYLIE BURR on 04/24/19 142 [Vit D3] , (Reported) Entered as Reported by: KRISTEN OLIVEIRA on 11/18/20 1258 Review of Systems Constitutional: No fever EENTM: No blurred vision Respiratory: No cough Cardiovascular: No chest pain Gastrointestinal: No abdominal pain Genitourinary: no symptoms reported Musculoskeletal: see HPI Skin: no symptoms reported Psychiatric/Neurological: No Symptoms Reported All Other Systems Reviewed Negative Unless Noted: Yes Past Kmrupxb-Ioxhbd-Xpucmt Hx Patient Social History Tobacco Use?: No Smoking Status: Never a Smoker Smokeless Tobacco Frequency: Never a User Use of E-Cig and/or Vaping dev: No Use of E-Cig and/or Vaping [place]: Never a User Substance use?: No Alcohol Use?: No Pt feels they are or have been: No Immunizations Up To Date Tetanus Booster (TDap): Unknown Seasonal Allergies Seasonal Allergies: No Past Medical History Surgery/Hospitalization HX: 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 Surgeries: Yes Appendectomy Respiratory: Yes Sleep Apnea Currently Using CPAP: No (DOES NOT USE) Cardiac: Yes High Cholesterol, Hypertension, Irregular Heartbeat Neurological: No Sexually Transmitted Disease: No HIV/AIDS: No Genitourinary: No Gastrointestinal: Yes (GAS) Colitis, Gastroesophageal Reflux, Chronic Constipation Musculoskeletal: Yes Arthritis Endocrine: No HEENT: Yes (GLASSES) Loss of Vision: Denies Hearing Impairment: Denies Cancer: No Psychosocial: No Integumentary: Yes Psoriasis Blood Disorders: No Adverse Reaction/Blood Tranf: No (N/A) Physical Exam Vital Signs Vital Signs - First Documented 04/26/22 09:45 Temp 36.7 Pulse 74 Resp 16 B/P (MAP) 125/77 (93) O2 Delivery Room Air Capillary Refill : Less Than 3 Seconds Height, Weight, BMI Height: 4'11.00" Weight: 140lbs. 0.0oz. 63.578170qk; 24.00 BMI Method:Stated General Appearance: WD/WN, no apparent distress HEENT: PERRL/EOMI, normal ENT inspection, pharynx normal Neck: non-tender, full range of motion, supple, normal inspection Cardiovascular: regular rate, rhythm, no edema, no murmur Respiratory: chest non-tender, lungs clear, normal breath sounds, no respiratory distress, no accessory muscle use Gastrointestinal: normal bowel sounds, non tender, soft; No distended, No guarding, No rebound Back: normal inspection, no CVA tenderness, no vertebral tenderness Hips: bilateral hip non-tender, bilateral hip normal inspection, bilateral hip normal range of motion, bilateral hip no evidence of injury Legs: bilateral leg non-tender, bilateral leg normal inspection, bilateral leg normal range of motion, bilateral leg no evidence of injury Knees: left knee non-tender; bilateral knee normal inspection, bilateral knee normal range of motion; left knee no evidence of injury; right knee bone tenderness (medial joint line) Ankles: bilateral ankle non-tender, bilateral ankle normal inspection, bilateral ankle normal range of motion, bilateral ankle no evidence of injury Neurologic/Tendon: normal sensation, normal motor functions (normal extensor mechanism bilateral knees), normal tendon functions Neurologic/Psychiatric: no motor/sensory deficits, alert, normal mood/affect Skin: normal color, warm/dry Lymphatic: no adenopathy Progress/Results/Core Measures Results/Orders My Orders Orders - DOLORES MARTIN MD Ct Extremity Lower Right Wo (04/26/22 10:01) Hydrocodone/Apap 5/325 Tablet (Lortab 5 (04/26/22 10:15) Medications Given in ED Current Medications Medications Dose Ordered Sig/Jenny Route Start Time Stop Time Status Last Admin Dose Admin Acetaminophen/ Hydrocodone Bitart 1 ea ONCE ONCE PO 04/26/22 10:15 04/26/22 10:16 DC 04/26/22 10:07 1 EA Vital Signs/I&O 04/26/22 09:45 Temp 36.7 Pulse 74 Resp 16 B/P (MAP) 125/77 (93) O2 Delivery Room Air Blood Pressure Mean: 93 Progress Progress Note : Progress Note 81-year-old female with above history coming in due to right knee pain after a fall roughly 1 week ago. ABCs were intact and vitals were stable on presentation. Physical exam with right knee pain. Most of her pain is actually medial, but CT concerning for a lateral tibial plateau depression fracture. We will place her in a knee immobilizer and have her follow-up with orthopedics as an outpatient. Given paper script for a wheelchair. She has a walker at home already. Given hydrocodone for pain here. I believe she is stable for discharge with outpatient follow-up. She was sent home with strict return precautions. Diagnostic Imaging Diagonstic Imaging: CT Plain Films/CT/US/NM/MRI: knee Comments [facility] [place], [place] NAME: JOB CARLOS Carolynn [facility] REC#: [id number] PT STATUS: REG ER : 1940 PHYSICIAN: DOLORES MARTIN MD ADMIT DATE: 04/26/22/ER FS Draft Date of Exam:04/26/22 CT EXTREMITY LOWER RIGHT WO PROCEDURE: CT right lower extremity without contrast. TECHNIQUE: Axially acquired CT was obtained through the right lower extremity without intravenous contrast. Coronal and sagittal reformations were also performed. Auto Exposure Controls were utilized during the CT exam to meet ALARA standards for radiation dose reduction. INDICATION: Right knee injury. Fall. Concern for fracture. COMPARISON: None. FINDINGS: There is depression of the lateral tibial plateau, suggestive of an impaction fracture. A small joint effusion is present without evidence of lipohemarthrosis. There is nonspecific sclerosis in the distal right femur and along the lateral aspect of the distal metaphysis of the right femur. Sclerotic changes are also present in the tibial plateau. Alignment of the right knee is anatomic. The surrounding soft tissues are unremarkable. IMPRESSION: 1. Findings suggestive of an impaction fracture involving the lateral tibial plateau. No lipohemarthrosis is seen. 2. Sclerotic findings along the articular surface of the distal right femur and right tibial plateau. Findings may represent degenerative changes and osteopenia. 3. Small right knee joint effusion. Dictated on workstation # [id number] Dict: 04/26/22 1040 Trans: 04/26/22 1049 [id number] Interpreted by: GUZMAN ROMERO DO Electronically signed by: Departure Impression Primary Impression: Tibial plateau fracture, right Qualified Codes: S82.141A - Displaced bicondylar fracture of right tibia, initial encounter for closed fracture Disposition: 01 HOME, SELF-CARE Condition: Stable Departure-Patient Inst. Decision time for Depature: 11:05 Referrals: MAX ROSARIO MD (PCP) Primary Care Physician DESTINY MORGAN MD Patient Instructions: Tibial Plateau Fracture (DC) Add. Discharge Instructions: It does look like you could have a fracture in your right knee called the tibial plateau. I want you to follow-up with Dr. Morgan as an outpatient in [place]. If you have an ortho doctor you prefer, then it is ok to follow up with them. Do not put any weight on the leg until you have been instructed to by an orthopedist. Keep on the knee immobilizer at all times unless you are trying to bathe. Scripts Hydrocodone Bit/Acetaminophen (HYDROcodone/APAP 5 MG/325 MG TAB) 1 Tab Tab 1 TAB PO Q6H for Pain for 3 Days, #12 TAB 0 Refills Prov: DOLORES MARTIN MD 04/26/22 DOLORES MARTIN MD Apr 26, 2022 10:05
[2022-04-26] MEDS ORDERED: HYDROcodone/APAP 5 MG/325 MG (LORTAB) TAB PO ONE (10:15)
--- NOTE | 2022-04-26 10:50 | Diagnostic Imaging Report ---
PROCEDURE: CT right lower extremity without contrast. TECHNIQUE: Axially acquired CT was obtained through the right lower extremity without intravenous contrast. Coronal and sagittal reformations were also performed. Auto Exposure Controls were utilized during the CT exam to meet ALARA standards for radiation dose reduction. INDICATION: Right knee injury. Fall. Concern for fracture. COMPARISON: None. FINDINGS: There is depression of the lateral tibial plateau, suggestive of an impaction fracture. A small joint effusion is present without evidence of lipohemarthrosis. There is nonspecific sclerosis in the distal right femur and along the lateral aspect of the distal metaphysis of the right femur. Sclerotic changes are also present in the tibial plateau. Alignment of the right knee is anatomic. The surrounding soft tissues are unremarkable. IMPRESSION: 1. Findings suggestive of an impaction fracture involving the lateral tibial plateau. No lipohemarthrosis is seen. 2. Sclerotic findings along the articular surface of the distal right femur and right tibial plateau. Findings may represent degenerative changes and osteopenia. 3. Small right knee joint effusion. Dictated by: Dictated on workstation # [id number]
[2022-04-26] MEDS ORDERED: ACHD5005 PO (10:58)
[2022-04-26 11:22] VITALS: BP 127/73
== END 2022-04-26 11:22 | disposition home or self-care (01) ==
LOC: EDUNIT# 09:42 → ER FS 09:44
DX: S82.141A Displaced bicondylar fracture of right tibia, initial encounter for closed fracture (principal); Z28.310 Unvaccinated for COVID-19; W01.0XXA Fall on same level from slipping, tripping and stumbling without subsequent striking against object, initial encounter
CPT/HCPCS: 73700

== ENCOUNTER → 2022-05-05 | Outpatient (CLI) | payer MEDICARE ==
[~2022-05-05] MED LIST changes: +ACHD5005 PO
== END ==
LOC: ORTHO 15:45
PROVIDERS: ATTEND Orthopaedic Surgery
DX: S82.143A Displaced bicondylar fracture of unspecified tibia, initial encounter for closed fracture (principal); I10 Essential (primary) hypertension; E78.2 Mixed hyperlipidemia; E66.9 Obesity, unspecified; X58.XXXA Exposure to other specified factors, initial encounter

== ENCOUNTER → 2022-06-15 | Outpatient (CLI) | payer MEDICARE ==
--- NOTE | 2022-06-15 16:16 | Diagnostic Imaging Report ---
INDICATION: History of right knee pain, status post fall. COMPARISON: CT of the knee dated 04/26/2022. FINDINGS: 3 radiographic views of the right knee were obtained and demonstrate interval development of curvilinear band of subchondral sclerosis involving the medial tibial plateau. This is suggestive of healing fracture. Otherwise, osseous structures are intact. Joint spaces are maintained. There may be trace suprapatellar joint effusion. No unexpected radiopaque foreign bodies are seen. IMPRESSION: 1. New band of subchondral sclerosis involving the medial tibial plateau suspicious for healing fracture. Dictated by: Dictated on workstation # [id number]
== END ==
LOC: RAD FS 12:43
PROVIDERS: ATTEND Orthopaedic Surgery
DX: Z47.89 Encounter for other orthopedic aftercare (principal)
CPT/HCPCS: 73562

== ENCOUNTER → 2023-05-09 | Outpatient (CLI) | payer MEDICARE | LOC: LABNPT 18:12 | PROVIDERS: ATTEND Internal Medicine | DX: Z53.9 Procedure and treatment not carried out, unspecified reason (principal) | CPT/HCPCS: 82274; 87015; 87045; 87046; 87899 ==